=== PATIENT | female | born 1960 | race Asian ===

== ENCOUNTER 2018-01-07 09:51 | Emergency (ER) | payer MEDICAID, OTHER ==
[~2018-01-07] VITALS: Ht 162.6 cm; Wt 81.8 kg
[~2018-01-07 09:51] MED LIST: LEVO112T4 PO; QUET300T2 PO
[2018-01-07 10:42] LABS: BASOPHILS % (AUTO) 0.7 % (0.0-2.0); EOSINOPHILS % (AUTO) 0.3 % (1.0-6.0); HEMATOCRIT 39.8 % (36-46); HEMOGLOBIN 13.3 g/dL (12.0-16.0); LYMPHOCYTES # (AUTO) 2.7 K/uL (1.0-4.8); LYMPHOCYTES % (AUTO) 32.5 % (22.0-44.0); MEAN CORPUSCULAR HEMOGLOBIN 28.6 pg (26.0-34.0); MEAN CORPUSCULAR HGB CONC 33.4 G/dL (31.0-37.0); MEAN CORPUSCULAR VOLUME 86 fL (80-100); MONOCYTES # (AUTO) 0.6 K/uL (0.1-1.0); MONOCYTES % (AUTO) 6.7 % (2.0-9.0); NEUTROPHILS % (AUTO) 59.8 % (40.0-70.0); PLATELET COUNT (AUTO) 355 K/uL (150-450); RED BLOOD CELL COUNT(AUTO) 4.65 MIL/uL (4.00-5.20); RED CELL DISTRIBUTION WIDTH 13.6 % (11.5-14.5)
[2018-01-07 10:59] LABS: ANION GAP 10 mmol/L (8-16); CARBON DIOXIDE 28 mmol/L (22-29); CHLORIDE 103 mmol/L (98-107); CREATININE 0.75 mg/dL (0.60-1.30); GLOMERULAR FILTR. RATE CALC > 60 mL/min (>60); GLUCOSE,RANDOM 121 mg/dL (70-110); POTASSIUM 3.4 mmol/L (3.5-5.1); SODIUM SERUM 141 mmol/L (136-145); UREA NITROGEN, BLOOD 8 mg/dL (7-18)
[2018-01-07 11:11] LABS: ALANINE AMINOTRANSFERASE 54 U/L (12-78); ALBUMIN 3.9 g/dL (3.4-5.0); ALKALINE PHOSPHATASE 87 U/L (46-116); ASPARTATE AMINOTRANSFERASE 27 U/L (15-37); BILIRUBIN,TOTAL 0.5 mg/dL (0.1-1.0); TOTAL PROTEIN, SERUM 8.2 g/dL (6.4-8.2)
[2018-01-07 11:45] LABS: AMPHET/METH SCREEN,URINE NEGATIVE (NEGATIVE); BARBITURATE SCREEN, URINE NEGATIVE (NEGATIVE); BENZODIAZEPINES SCREEN,URINE NEGATIVE (NEGATIVE); CANNABINOID SCREEN,URINE NEGATIVE (NEGATIVE); COCAINE SCREEN,URINE NEGATIVE (NEGATIVE); METHADONE SCREEN, URINE NEGATIVE (NEGATIVE); OPIATE SCREEN,URINE NEGATIVE (NEGATIVE)
[2018-01-07 11:46] LABS: PHENCYCLIDINE SCREEN,URINE NEGATIVE (NEGATIVE)
[2018-01-07 17:16] VITALS: BP 136/81
== END 2018-01-07 18:03 ==
LOC: EEVIPCON 09:51 → EMS 09:52
DX: F31.9 Bipolar disorder, unspecified (principal); E03.9 Hypothyroidism, unspecified
CPT/HCPCS: 36415; 80053; 80307; 85025; 99285; G0480

== ENCOUNTER 2018-01-23 11:32 | Emergency (ER) | payer OTHER ==
[~2018-01-23] VITALS: Ht 162.6 cm; Wt 81.8 kg
[2018-01-23] MEDS ORDERED: BECL10.62 IH (11:47)
[2018-01-23] MEDS ORDERED: ALBU8HFA PO (11:47)
[2018-01-23] MEDS ORDERED: IPRA4AER IH (11:47)
[2018-01-23] MEDS ORDERED: RANI150T7 PO (11:47)
[2018-01-23] MEDS ORDERED: ASPI81TA39 PO (11:47)
[2018-01-23] MEDS ORDERED: LEVE250T55 PO (11:47)
[2018-01-23 13:07] VITALS: BP 139/91
== END 2018-01-23 13:57 | disposition home or self-care (01) ==
LOC: EMS 11:34
DX: S80.212A Abrasion, left knee, initial encounter (principal); F32.9 Major depressive disorder, single episode, unspecified; E03.9 Hypothyroidism, unspecified; Z79.82 Long term (current) use of aspirin; Z79.899 Other long term (current) drug therapy; W01.0XXA Fall on same level from slipping, tripping and stumbling without subsequent striking against object, initial encounter; Y93.01 Activity, walking, marching and hiking; Y92.830 Public park as the place of occurrence of the external cause; Y99.8 Other external cause status
CPT/HCPCS: 99283

== ENCOUNTER 2019-11-30 13:48 | Inpatient (IN) | payer MEDICAID, OTHER ==
[~2019-11-30] VITALS: Ht 157.5 cm; Wt 89.3 kg
[~2019-11-30 13:48] MED LIST changes: +BECL10.62 IH; +LEVE250T55 PO; -LEVO112T4 PO; +RANI150T7 PO; +SERT25TA PO
[2019-11-30 15:06] LABS: BASOPHILS % (AUTO) 0.9 % (0.0-2.0); EOSINOPHILS % (AUTO) 0.1 % (1.0-6.0); HEMATOCRIT 39.3 % (36-46); LYMPHOCYTES # (AUTO) 3.3 K/uL (1.0-4.8); LYMPHOCYTES % (AUTO) 36.8 % (22.0-44.0); MEAN CORPUSCULAR HEMOGLOBIN 29.9 pg (26.0-34.0); MEAN CORPUSCULAR HGB CONC 33.1 G/dL (31.0-37.0); MEAN CORPUSCULAR VOLUME 90 fL (80-100); MONOCYTES # (AUTO) 0.6 K/uL (0.1-1.0); MONOCYTES % (AUTO) 6.8 % (2.0-9.0); NEUTROPHILS # (AUTO) 4.9 K/uL (1.8-7.7); NEUTROPHILS % (AUTO) 55.4 % (40.0-70.0); PLATELET COUNT (AUTO) 326 K/uL (150-450); RED BLOOD CELL COUNT(AUTO) 4.35 MIL/uL (4.00-5.20); RED CELL DISTRIBUTION WIDTH 13.5 % (11.5-14.5)
[2019-11-30 15:21] LABS: ANION GAP 10 mmol/L (8-16); CALCIUM, TOTAL 9.2 mg/dL (8.8-10.5); CARBON DIOXIDE 26 mmol/L (22-29); CHLORIDE 102 mmol/L (98-107); CREATININE 0.82 mg/dL (0.60-1.30); GLOMERULAR FILTR. RATE CALC > 60 mL/min (>60); GLUCOSE,RANDOM 122 mg/dL (70-110); POTASSIUM 3.3 mmol/L (3.5-5.1); SODIUM SERUM 138 mmol/L (136-145); UREA NITROGEN, BLOOD 8 mg/dL (7-18)
[2019-11-30 15:33] LABS: ALANINE AMINOTRANSFERASE 80 U/L (12-78); ALBUMIN 4.1 g/dL (3.4-5.0); ALKALINE PHOSPHATASE 90 U/L (46-116); ASPARTATE AMINOTRANSFERASE 34 U/L (15-37); BILIRUBIN,TOTAL 0.5 mg/dL (0.1-1.0); HCG,QUANTITATIVE 1 mIU/mL (0-6); TOTAL PROTEIN, SERUM 8.6 g/dL (6.4-8.2)
[2019-11-30] MEDS ORDERED: QUEtiapine FUMARATE 100 MG TABLET PO ONE (16:00)
[2019-11-30] MEDS ORDERED: POTASSIUM CHLORIDE 20 MEQ ER TABLET PO ONE (16:00)
[2019-11-30] MEDS ORDERED: LevETIRAcetam 500 MG TABLET PO ONE (16:00)
[2019-11-30 16:05] LABS: FREE T4 (FREE THYROXINE) 1.32 ng/dL (0.76-1.46); THYROID STIMULATING HORMONE 0.75 uIU/mL (0.36-3.74)
[2019-11-30] MEDS ORDERED: LORazepam 2 MG TABLET PO PRN (16:30)
[2019-11-30] MEDS ORDERED: ZOLPIDEM TARTRATE 10 MG TABLET PO PRN (16:30)
[2019-11-30] MEDS ORDERED: HALOPERIDOL 5 MG TABLET PO PRN (16:30)
[2019-11-30 19:51] LABS: APPEARANCE,URINE CLOUDY (CLEAR); BILIRUBIN,URINE NEGATIVE (NEGATIVE); GLUCOSE, URINE (UA) NEGATIVE (NEGATIVE); KETONES,URINE 15 mg/dL (NEGATIVE); LEUKOCYTE ESTERASE ,URINE SMALL (NEGATIVE); NITRATE,URINE POSITIVE (NEGATIVE); OCCULT BLOOD,URINE SMALL (NEGATIVE); PH,URINE 5.5 (5.0-8.0); PROTEIN,URINE NEGATIVE (NEGATIVE)
[2019-11-30 20:09] LABS: BACTERIA,URINE Many /HPF (None Seen); SQUAMOUS EPITHELIAL CELL,UR Few /LPF (None Seen)
[2019-11-30 20:16] LABS: AMPHET/METH SCREEN,URINE NEGATIVE (NEGATIVE); BARBITURATE SCREEN, URINE NEGATIVE (NEGATIVE); BENZODIAZEPINES SCREEN,URINE NEGATIVE (NEGATIVE); CANNABINOID SCREEN,URINE NEGATIVE (NEGATIVE); COCAINE SCREEN,URINE NEGATIVE (NEGATIVE); METHADONE SCREEN, URINE NEGATIVE (NEGATIVE); OPIATE SCREEN,URINE NEGATIVE (NEGATIVE); PHENCYCLIDINE SCREEN,URINE NEGATIVE (NEGATIVE)
[2019-11-30] MEDS ORDERED: CefTRIAXone 1 GM/DEXTROSE 50 ML IV ONE (20:30)
[2019-11-30] MEDS ORDERED: 0.9% SODIUM CHLORIDE 10 ML SYRINGE IVP PRN (21:30)
[2019-11-30] MEDS ORDERED: ACETAMINOPHEN 325 MG TABLET PO PRN ×2 (21:30→23:30)
[2019-11-30] MEDS ORDERED: BISACODYL 10 MG RECTAL RECTAL SUPPOSITORY PR PRN (23:30)
[2019-11-30] MEDS ORDERED: ZOLPIDEM TARTRATE 5 MG TABLET PO PRN (23:30)
[2019-11-30] MEDS ORDERED: IPRATROPIUM BROMIDE 0.5 MG/2.5 ML NEB SOLUTION NEB PRN (23:30)
[2019-11-30] MEDS ORDERED: MAGNESIUM HYDROXIDE SUSPENSION 30 ML UDCUP PO PRN (23:30)
[2019-11-30] MEDS ORDERED: ALBUTEROL SULFATE 2.5 MG/0.5 ML NEB SOLUTION NEB PRN (23:30)
[2019-12-01 00:05] LABS: THYROID STIMULATING HORMONE 1.44 uIU/mL (0.36-3.74)
[2019-12-01 01:58] LABS: GLUCOSE,POINT OF CARE 110 MG/DL (70-110)
[2019-12-01 03:34] LABS: FREE T4 (FREE THYROXINE) 1.17 ng/dL (0.76-1.46)
[2019-12-01] MEDS: DOCUSATE SODIUM 100 MG CAPSULE PO SCH ×2 (08:14→21:00)
[2019-12-01] MEDS: HEPARIN SODIUM,PORCINE 5,000 UNITS/ML VIAL SQ SCH ×4 (08:15→23:33)
[2019-12-01] MEDS ORDERED: LevETIRAcetam 750 MG in DEXTROSE 5%-WATER 100 ML IV SCH ×2 (09:00→15:00)
[2019-12-01 11:51] VITALS: BP 136/71
[2019-12-01 16:10] VITALS: BP 137/79
[2019-12-01] MEDS: LevETIRAcetam 750 MG in DEXTROSE 5%-WATER 100 ML IV SCH (16:13)
[2019-12-01 20:07] VITALS: BP 122/60
[2019-12-01] MEDS ORDERED: CefTRIAXone 1 GM/DEXTROSE 50 ML IV SCH (21:00)
[2019-12-01 23:19] VITALS: BP 132/64
[2019-12-01] MEDS: CefTRIAXone 1 GM/DEXTROSE 50 ML IV SCH (23:31)
[2019-12-02] MEDS: LevETIRAcetam 750 MG in DEXTROSE 5%-WATER 100 ML IV SCH ×2 (02:43→14:54)
[2019-12-02 04:57] VITALS: BP 142/70
[2019-12-02 07:55] VITALS: BP 155/96
[2019-12-02] MEDS: HEPARIN SODIUM,PORCINE 5,000 UNITS/ML VIAL SQ SCH ×2 (08:00→14:53)
[2019-12-02] MEDS: DOCUSATE SODIUM 100 MG CAPSULE PO SCH ×4 (08:34→22:23)
[2019-12-02 11:51] VITALS: BP 99/44
[2019-12-02] MEDS ORDERED: POTASSIUM CHLORIDE 20 MEQ ER TABLET PO ONE (13:00)
[2019-12-02 20:12] VITALS: BP 126/76
[2019-12-03 00:01] VITALS: BP 106/41
[2019-12-03] MEDS: CefTRIAXone 1 GM/DEXTROSE 50 ML IV SCH ×2 (00:15→23:40)
[2019-12-03] MEDS: LevETIRAcetam 750 MG in DEXTROSE 5%-WATER 100 ML IV SCH ×2 (03:05→15:00)
[2019-12-03 05:03] VITALS: BP 125/62
[2019-12-03] MEDS: HEPARIN SODIUM,PORCINE 5,000 UNITS/ML VIAL SQ SCH ×4 (08:00→23:39)
[2019-12-03 08:15] VITALS: BP 101/61
[2019-12-03] MEDS: DOCUSATE SODIUM 100 MG CAPSULE PO SCH ×2 (09:00→21:03)
[2019-12-03 11:55] VITALS: BP 120/63
[2019-12-03 16:00] VITALS: BP 121/62
[2019-12-03 20:28] VITALS: BP 105/75
[2019-12-04] VITALS (7 sets, daily range): BP systolic 103–142; BP diastolic 55–88
[2019-12-04] MEDS: LevETIRAcetam 750 MG in DEXTROSE 5%-WATER 100 ML IV SCH ×2 (02:13→16:11)
[2019-12-04] MEDS: HEPARIN SODIUM,PORCINE 5,000 UNITS/ML VIAL SQ SCH ×2 (08:00→16:00)
[2019-12-04] MEDS: DOCUSATE SODIUM 100 MG CAPSULE PO SCH ×2 (08:08→20:55)
[2019-12-05] MEDS: HEPARIN SODIUM,PORCINE 5,000 UNITS/ML VIAL SQ SCH ×4 (00:54→23:48)
[2019-12-05] MEDS: CefTRIAXone 1 GM/DEXTROSE 50 ML IV SCH (00:54)
[2019-12-05] MEDS ORDERED: SODIUM CHLORIDE 0.9% 500 ML IV ONE (00:58)
[2019-12-05] MEDS: LevETIRAcetam 750 MG in DEXTROSE 5%-WATER 100 ML IV SCH (02:41)
[2019-12-05 04:33] VITALS: BP 120/72
[2019-12-05] MEDS: DOCUSATE SODIUM 100 MG CAPSULE PO SCH ×2 (07:28→21:01)
[2019-12-05 08:27] VITALS: BP 125/75
[2019-12-05 11:20] VITALS: BP 130/67
[2019-12-05 15:41] VITALS: BP 128/70
[2019-12-05 19:45] VITALS: BP 129/57
[2019-12-05] MEDS: LevETIRAcetam 250 MG TABLET PO SCH (21:01)
[2019-12-05 23:35] VITALS: BP 123/62
[2019-12-06 05:45] VITALS: BP 129/69
[2019-12-06 08:02] VITALS: BP 136/81
[2019-12-06] MEDS: DOCUSATE SODIUM 100 MG CAPSULE PO SCH (08:59)
[2019-12-06] MEDS: HEPARIN SODIUM,PORCINE 5,000 UNITS/ML VIAL SQ SCH ×2 (08:59→15:43)
[2019-12-06] MEDS: LevETIRAcetam 250 MG TABLET PO SCH (08:59)
[2019-12-06] MEDS ORDERED: LEVOFLOXACIN 500 MG TABLET PO SCH (09:00)
[2019-12-06 12:19] VITALS: BP 120/85
[2019-12-06] MEDS ORDERED: LEVE250T55 PO (15:06)
[2019-12-06 15:53] VITALS: BP 127/80
== END 2019-12-06 16:47 | DRG 756 ==
LOC: EMS 13:52 → 5S 12-01 08:25 → 4E 12-04 17:40
PROVIDERS: ADMIT Hospitalist; ATTEND Hospitalist
DX: F99 Mental disorder, not otherwise specified (principal); I63.81 Other cerebral infarction due to occlusion or stenosis of small artery; F32.9 Major depressive disorder, single episode, unspecified; H74.90 Unspecified disorder of middle ear and mastoid, unspecified ear; G93.0 Cerebral cysts; H61.21 Impacted cerumen, right ear; E03.9 Hypothyroidism, unspecified; N39.0 Urinary tract infection, site not specified; G40.909 Epilepsy, unspecified, not intractable, without status epilepticus
CPT/HCPCS: 70450; 82948; 84132; 84439; 84443; 87086; 92610; 93005; 93880; 99291; G0378; G0480; J0696; J0712; J1644; J7040; J7060

== ENCOUNTER 2019-12-06 16:30 | Inpatient (IN) | payer MEDICAID ==
[~2019-12-06] VITALS: Ht 162.6 cm; Wt 84.3 kg
[2019-12-06] MEDS: LevETIRAcetam 250 MG TABLET PO SCH (18:40)
[2019-12-06] MEDS ORDERED: LORazepam 2 MG TABLET PO PRN (19:00)
[2019-12-06] MEDS ORDERED: HALOPERIDOL 5 MG TABLET PO PRN (19:00)
[2019-12-06] MEDS ORDERED: ZOLPIDEM TARTRATE 10 MG TABLET PO PRN (19:00)
[2019-12-06] MEDS: QUEtiapine FUMARATE 200 MG TABLET PO SCH (20:13)
[2019-12-06 20:42] VITALS: BP 142/81
[2019-12-07] MEDS: LEVOTHYROXINE SODIUM 50 MCG TABLET PO SCH (06:22)
[2019-12-07 07:12] LABS: BASOPHILS % (AUTO) 1.4 % (0.0-2.0); HEMOGLOBIN 13.3 g/dL (12.0-16.0); LYMPHOCYTES # (AUTO) 3.8 K/uL (1.0-4.8); LYMPHOCYTES % (AUTO) 47.5 % (22.0-44.0); MEAN CORPUSCULAR HEMOGLOBIN 30.2 pg (26.0-34.0); MEAN CORPUSCULAR HGB CONC 33.2 G/dL (31.0-37.0); MEAN CORPUSCULAR VOLUME 91 fL (80-100); MONOCYTES # (AUTO) 0.6 K/uL (0.1-1.0); MONOCYTES % (AUTO) 7.1 % (2.0-9.0); NEUTROPHILS # (AUTO) 3.4 K/uL (1.8-7.7); PLATELET COUNT (AUTO) 292 K/uL (150-450); RED BLOOD CELL COUNT(AUTO) 4.39 MIL/uL (4.00-5.20); RED CELL DISTRIBUTION WIDTH 13.9 % (11.5-14.5)
[2019-12-07] MEDS ORDERED: PETROLATUM,WHITE 28 GM JELLY TP PRN (07:15)
[2019-12-07] MEDS ORDERED: CloNIDine HCL 0.1 MG TABLET PO PRN (07:15)
[2019-12-07] MEDS ORDERED: MAG HYDROX/AL HYDROX/SIMETH ES 30 ML SUSPENSION UDCUP PO PRN (07:15)
[2019-12-07] MEDS ORDERED: NICOTINE 14 MG/24 HOUR PATCH TD PRN (07:15)
[2019-12-07] MEDS ORDERED: DOCUSATE SODIUM 100 MG CAPSULE PO PRN (07:15)
[2019-12-07] MEDS ORDERED: MAGNESIUM HYDROXIDE SUSPENSION 30 ML UDCUP PO PRN (07:15)
[2019-12-07] MEDS ORDERED: ALBUTEROL SULFATE HFA 90 MCG/PUFF 8 GM INHALER IH PRN (07:15)
[2019-12-07] MEDS ORDERED: ACETAMINOPHEN 325 MG TABLET PO PRN (07:15)
[2019-12-07] MEDS ORDERED: IBUPROFEN 400 MG TABLET PO PRN (07:15)
[2019-12-07] MEDS ORDERED: ONDANSETRON HCL 4 MG TABLET PO PRN (07:15)
[2019-12-07] MEDS ORDERED: LOPERAMIDE HCL 2 MG CAPSULE PO PRN (07:15)
[2019-12-07] MEDS ORDERED: GuaiFENesin/D-METHORPHAN [SUGAR-FREE] 200-20MG/10 ML SYRUP UDCUP PO PRN (07:15)
[2019-12-07 07:39] LABS: ALANINE AMINOTRANSFERASE 55 U/L (12-78); ALBUMIN 3.6 g/dL (3.4-5.0); ALKALINE PHOSPHATASE 74 U/L (46-116); ANION GAP 7 mmol/L (8-16); ASPARTATE AMINOTRANSFERASE 31 U/L (15-37); BILIRUBIN,TOTAL 0.3 mg/dL (0.1-1.0); CALCIUM, TOTAL 9.2 mg/dL (8.8-10.5); CARBON DIOXIDE 29 mmol/L (22-29); CHLORIDE 109 mmol/L (98-107); CREATININE 0.82 mg/dL (0.60-1.30); GLOMERULAR FILTR. RATE CALC > 60 mL/min (>60); GLUCOSE,RANDOM 93 mg/dL (70-110); POTASSIUM 4.4 mmol/L (3.5-5.1); SODIUM SERUM 145 mmol/L (136-145); TOTAL PROTEIN, SERUM 7.5 g/dL (6.4-8.2); UREA NITROGEN, BLOOD 14 mg/dL (7-18)
[2019-12-07] MEDS: SERTRALINE HCL 50 MG TABLET PO SCH (09:07)
[2019-12-07] MEDS: LEVOFLOXACIN 500 MG TABLET PO SCH (09:07)
[2019-12-07] MEDS: BENAZEPRIL HCL 10 MG TABLET PO SCH (09:07)
[2019-12-07] MEDS: DOCUSATE SODIUM 100 MG CAPSULE PO SCH ×2 (09:07→16:31)
[2019-12-07] MEDS: LevETIRAcetam 250 MG TABLET PO SCH ×2 (09:07→16:26)
[2019-12-07 10:39] VITALS: BP 140/78
[2019-12-07 16:58] VITALS: BP 157/66
[2019-12-07] MEDS: QUEtiapine FUMARATE 200 MG TABLET PO SCH (20:27)
[2019-12-08 04:26] VITALS: BP 140/77
[2019-12-08] MEDS: LEVOTHYROXINE SODIUM 50 MCG TABLET PO SCH (06:48)
[2019-12-08] MEDS: LevETIRAcetam 250 MG TABLET PO SCH ×2 (08:58→16:55)
[2019-12-08] MEDS: SERTRALINE HCL 50 MG TABLET PO SCH (08:58)
[2019-12-08] MEDS: LEVOFLOXACIN 500 MG TABLET PO SCH (08:58)
[2019-12-08] MEDS: BENAZEPRIL HCL 10 MG TABLET PO SCH (08:58)
[2019-12-08] MEDS: DOCUSATE SODIUM 100 MG CAPSULE PO SCH ×2 (09:00→16:58)
[2019-12-08 09:43] VITALS: BP 157/86
[2019-12-08 17:32] VITALS: BP 148/80
[2019-12-08] MEDS: QUEtiapine FUMARATE 200 MG TABLET PO SCH (20:32)
[2019-12-09] MEDS: LEVOTHYROXINE SODIUM 50 MCG TABLET PO SCH (06:41)
[2019-12-09 08:30] VITALS: BP 130/88
[2019-12-09] MEDS: SERTRALINE HCL 50 MG TABLET PO SCH (08:41)
[2019-12-09] MEDS: LevETIRAcetam 250 MG TABLET PO SCH ×2 (08:41→17:04)
[2019-12-09] MEDS: LEVOFLOXACIN 500 MG TABLET PO SCH (08:41)
[2019-12-09] MEDS: DOCUSATE SODIUM 100 MG CAPSULE PO SCH ×2 (08:41→17:04)
[2019-12-09] MEDS: BENAZEPRIL HCL 10 MG TABLET PO SCH (08:41)
[2019-12-09 16:48] VITALS: BP 118/73
[2019-12-09] MEDS: QUEtiapine FUMARATE 200 MG TABLET PO SCH (21:13)
[2019-12-10] MEDS: LEVOTHYROXINE SODIUM 50 MCG TABLET PO SCH (06:47)
[2019-12-10] MEDS: BENAZEPRIL HCL 10 MG TABLET PO SCH (08:55)
[2019-12-10] MEDS: LEVOFLOXACIN 500 MG TABLET PO SCH (08:55)
[2019-12-10] MEDS: LevETIRAcetam 250 MG TABLET PO SCH ×2 (08:55→16:35)
[2019-12-10] MEDS: SERTRALINE HCL 50 MG TABLET PO SCH (08:56)
[2019-12-10] MEDS: DOCUSATE SODIUM 100 MG CAPSULE PO SCH ×2 (08:59→17:00)
[2019-12-10 09:27] VITALS: BP 119/87
[2019-12-10 16:50] VITALS: BP 154/84
[2019-12-10] MEDS: QUEtiapine FUMARATE 200 MG TABLET PO SCH (20:19)
[2019-12-11] MEDS: LEVOTHYROXINE SODIUM 50 MCG TABLET PO SCH (06:47)
[2019-12-11] MEDS: BENAZEPRIL HCL 10 MG TABLET PO SCH (09:00)
[2019-12-11] MEDS: SERTRALINE HCL 50 MG TABLET PO SCH (09:00)
[2019-12-11] MEDS: LevETIRAcetam 250 MG TABLET PO SCH ×2 (09:00→16:03)
[2019-12-11] MEDS: LEVOFLOXACIN 500 MG TABLET PO SCH (09:00)
[2019-12-11] MEDS: DOCUSATE SODIUM 100 MG CAPSULE PO SCH ×2 (09:00→16:03)
[2019-12-11 09:57] VITALS: BP 115/67
[2019-12-11 16:36] VITALS: BP 126/78
[2019-12-11] MEDS: QUEtiapine FUMARATE 200 MG TABLET PO SCH (20:31)
[2019-12-12] MEDS: LEVOTHYROXINE SODIUM 50 MCG TABLET PO SCH (06:38)
[2019-12-12] MEDS: DOCUSATE SODIUM 100 MG CAPSULE PO SCH ×2 (08:52→16:37)
[2019-12-12] MEDS: SERTRALINE HCL 50 MG TABLET PO SCH (08:52)
[2019-12-12] MEDS: BENAZEPRIL HCL 10 MG TABLET PO SCH (08:53)
[2019-12-12] MEDS: LevETIRAcetam 250 MG TABLET PO SCH ×2 (08:53→16:37)
[2019-12-12 09:57] VITALS: BP 135/108
[2019-12-12 17:00] VITALS: BP 132/72
[2019-12-12] MEDS: QUEtiapine FUMARATE 200 MG TABLET PO SCH (20:48)
[2019-12-13] MEDS: LEVOTHYROXINE SODIUM 50 MCG TABLET PO SCH (06:30)
[2019-12-13] MEDS: BENAZEPRIL HCL 10 MG TABLET PO SCH (08:18)
[2019-12-13] MEDS: LevETIRAcetam 250 MG TABLET PO SCH ×2 (08:18→16:22)
[2019-12-13] MEDS: DOCUSATE SODIUM 100 MG CAPSULE PO SCH ×3 (08:18→16:23)
[2019-12-13] MEDS: SERTRALINE HCL 50 MG TABLET PO SCH (08:18)
[2019-12-13 08:39] VITALS: BP 139/68
[2019-12-13 17:51] VITALS: BP 137/79
[2019-12-13] MEDS: QUEtiapine FUMARATE 200 MG TABLET PO SCH (20:10)
[2019-12-14] MEDS: LEVOTHYROXINE SODIUM 50 MCG TABLET PO SCH (06:35)
[2019-12-14 08:30] VITALS: BP 122/75
[2019-12-14] MEDS: DOCUSATE SODIUM 100 MG CAPSULE PO SCH ×2 (09:00→16:02)
[2019-12-14] MEDS: LevETIRAcetam 250 MG TABLET PO SCH ×2 (09:09→16:02)
[2019-12-14] MEDS: BENAZEPRIL HCL 10 MG TABLET PO SCH (09:10)
[2019-12-14] MEDS: SERTRALINE HCL 50 MG TABLET PO SCH (09:10)
[2019-12-14 16:47] VITALS: BP 113/68
[2019-12-14] MEDS: QUEtiapine FUMARATE 200 MG TABLET PO SCH (20:01)
[2019-12-15] MEDS: LEVOTHYROXINE SODIUM 50 MCG TABLET PO SCH (06:39)
[2019-12-15] MEDS: SERTRALINE HCL 50 MG TABLET PO SCH ×2 (08:30→09:45)
[2019-12-15] MEDS: DOCUSATE SODIUM 100 MG CAPSULE PO SCH ×3 (08:30→16:00)
[2019-12-15] MEDS: LevETIRAcetam 250 MG TABLET PO SCH ×3 (08:30→16:00)
[2019-12-15] MEDS: BENAZEPRIL HCL 10 MG TABLET PO SCH ×2 (08:30→09:45)
[2019-12-15 08:45] VITALS: BP 117/63
[2019-12-15 20:04] VITALS: BP 123/71
[2019-12-15] MEDS: QUEtiapine FUMARATE 200 MG TABLET PO SCH (20:23)
[2019-12-16] MEDS: LEVOTHYROXINE SODIUM 50 MCG TABLET PO SCH (06:42)
[2019-12-16 08:47] VITALS: BP 114/59
[2019-12-16 08:58] VITALS: BP 126/73
[2019-12-16] MEDS: DOCUSATE SODIUM 100 MG CAPSULE PO SCH ×2 (09:00→16:19)
[2019-12-16] MEDS: LevETIRAcetam 250 MG TABLET PO SCH ×2 (09:18→16:19)
[2019-12-16] MEDS: BENAZEPRIL HCL 10 MG TABLET PO SCH (09:19)
[2019-12-16] MEDS: SERTRALINE HCL 50 MG TABLET PO SCH (09:19)
[2019-12-16 17:24] VITALS: BP 128/77
[2019-12-16] MEDS: QUEtiapine FUMARATE 200 MG TABLET PO SCH (21:15)
[2019-12-17 03:02] VITALS: BP 120/67
[2019-12-17] MEDS: LEVOTHYROXINE SODIUM 50 MCG TABLET PO SCH (06:43)
[2019-12-17] MEDS: BENAZEPRIL HCL 10 MG TABLET PO SCH (08:34)
[2019-12-17] MEDS: LevETIRAcetam 250 MG TABLET PO SCH ×2 (08:34→16:10)
[2019-12-17] MEDS: SERTRALINE HCL 50 MG TABLET PO SCH (08:34)
[2019-12-17] MEDS: DOCUSATE SODIUM 100 MG CAPSULE PO SCH ×2 (08:38→16:20)
[2019-12-17 09:08] VITALS: BP 167/100
[2019-12-17 16:00] VITALS: BP 150/62
[2019-12-17] MEDS ORDERED: DiphenhydrAMINE HCL 50 MG/ML VIAL IM ONE (18:45)
[2019-12-17] MEDS ORDERED: HALOPERIDOL LACTATE 5 MG/ML VIAL IM ONE (18:45)
[2019-12-17] MEDS ORDERED: LORazepam 2 MG/ML VIAL IM ONE (18:45)
[2019-12-17] MEDS: QUEtiapine FUMARATE 200 MG TABLET PO SCH (20:28)
[2019-12-18] MEDS: LEVOTHYROXINE SODIUM 50 MCG TABLET PO SCH (06:13)
[2019-12-18] MEDS: DOCUSATE SODIUM 100 MG CAPSULE PO SCH ×2 (09:00→16:07)
[2019-12-18 09:30] VITALS: BP 113/69
[2019-12-18] MEDS: LevETIRAcetam 250 MG TABLET PO SCH ×2 (09:54→16:07)
[2019-12-18] MEDS: BENAZEPRIL HCL 10 MG TABLET PO SCH (09:55)
[2019-12-18] MEDS: SERTRALINE HCL 50 MG TABLET PO SCH (09:55)
[2019-12-18 16:51] VITALS: BP 139/76
[2019-12-18] MEDS: QUEtiapine FUMARATE 200 MG TABLET PO SCH (20:16)
[2019-12-19] MEDS: LEVOTHYROXINE SODIUM 50 MCG TABLET PO SCH (06:25)
[2019-12-19] MEDS: DOCUSATE SODIUM 100 MG CAPSULE PO SCH ×2 (08:46→17:00)
[2019-12-19] MEDS: SERTRALINE HCL 50 MG TABLET PO SCH (08:46)
[2019-12-19] MEDS: BENAZEPRIL HCL 10 MG TABLET PO SCH (08:46)
[2019-12-19] MEDS: LevETIRAcetam 250 MG TABLET PO SCH ×2 (08:46→16:17)
[2019-12-19 09:20] VITALS: BP 132/80
[2019-12-19 17:56] VITALS: BP 141/76
[2019-12-19] MEDS: QUEtiapine FUMARATE 200 MG TABLET PO SCH (20:07)
[2019-12-20] MEDS: LEVOTHYROXINE SODIUM 50 MCG TABLET PO SCH (06:39)
[2019-12-20 08:00] VITALS: BP 126/90
[2019-12-20] MEDS: SERTRALINE HCL 50 MG TABLET PO SCH (08:50)
[2019-12-20] MEDS: LevETIRAcetam 250 MG TABLET PO SCH ×2 (08:51→16:01)
[2019-12-20] MEDS: BENAZEPRIL HCL 10 MG TABLET PO SCH (08:51)
[2019-12-20] MEDS: DOCUSATE SODIUM 100 MG CAPSULE PO SCH ×2 (08:53→16:51)
[2019-12-20 19:36] VITALS: BP 125/70
[2019-12-20] MEDS: QUEtiapine FUMARATE 200 MG TABLET PO SCH (20:24)
[2019-12-21] MEDS: LEVOTHYROXINE SODIUM 50 MCG TABLET PO SCH (06:41)
[2019-12-21 09:17] VITALS: BP 131/73
[2019-12-21] MEDS: BENAZEPRIL HCL 10 MG TABLET PO SCH (10:10)
[2019-12-21] MEDS: SERTRALINE HCL 50 MG TABLET PO SCH (10:10)
[2019-12-21] MEDS: LevETIRAcetam 250 MG TABLET PO SCH ×2 (10:10→16:17)
[2019-12-21] MEDS: DOCUSATE SODIUM 100 MG CAPSULE PO SCH ×2 (10:10→16:17)
[2019-12-21 16:58] VITALS: BP 131/85
[2019-12-21] MEDS: QUEtiapine FUMARATE 200 MG TABLET PO SCH (20:45)
[2019-12-22 02:25] VITALS: BP 151/89
[2019-12-22] MEDS: LEVOTHYROXINE SODIUM 50 MCG TABLET PO SCH (06:49)
[2019-12-22] MEDS: DOCUSATE SODIUM 100 MG CAPSULE PO SCH ×2 (09:00→16:09)
[2019-12-22] MEDS: BENAZEPRIL HCL 10 MG TABLET PO SCH (09:57)
[2019-12-22] MEDS: SERTRALINE HCL 50 MG TABLET PO SCH (09:58)
[2019-12-22] MEDS: LevETIRAcetam 250 MG TABLET PO SCH ×2 (09:58→16:09)
[2019-12-22 11:20] VITALS: BP 132/89
[2019-12-22 19:15] VITALS: BP 126/78
[2019-12-22] MEDS: QUEtiapine FUMARATE 200 MG TABLET PO SCH (20:45)
[2019-12-23] MEDS: LEVOTHYROXINE SODIUM 50 MCG TABLET PO SCH (06:23)
[2019-12-23 08:50] VITALS: BP 135/83
[2019-12-23] MEDS: SERTRALINE HCL 50 MG TABLET PO SCH (09:00)
[2019-12-23] MEDS: BENAZEPRIL HCL 10 MG TABLET PO SCH (09:00)
[2019-12-23] MEDS: DOCUSATE SODIUM 100 MG CAPSULE PO SCH ×2 (09:00→17:00)
[2019-12-23] MEDS: LevETIRAcetam 250 MG TABLET PO SCH ×2 (09:18→16:06)
[2019-12-23 16:22] VITALS: BP 116/77
[2019-12-23] MEDS: QUEtiapine FUMARATE 200 MG TABLET PO SCH (20:00)
[2019-12-24] MEDS: LEVOTHYROXINE SODIUM 50 MCG TABLET PO SCH (06:43)
[2019-12-24] MEDS: LevETIRAcetam 250 MG TABLET PO SCH ×2 (08:43→16:20)
[2019-12-24] MEDS: SERTRALINE HCL 50 MG TABLET PO SCH (08:43)
[2019-12-24] MEDS: BENAZEPRIL HCL 10 MG TABLET PO SCH (08:44)
[2019-12-24] MEDS: DOCUSATE SODIUM 100 MG CAPSULE PO SCH ×2 (08:47→16:26)
[2019-12-24 08:57] VITALS: BP 149/98
[2019-12-24 17:00] VITALS: BP 121/80
[2019-12-24] MEDS: QUEtiapine FUMARATE 200 MG TABLET PO SCH (20:24)
[2019-12-25] MEDS: LEVOTHYROXINE SODIUM 50 MCG TABLET PO SCH (06:20)
[2019-12-25] MEDS: DOCUSATE SODIUM 100 MG CAPSULE PO SCH ×2 (09:00→17:00)
[2019-12-25] MEDS: LevETIRAcetam 250 MG TABLET PO SCH ×2 (09:03→16:00)
[2019-12-25] MEDS: SERTRALINE HCL 50 MG TABLET PO SCH (09:03)
[2019-12-25] MEDS: BENAZEPRIL HCL 10 MG TABLET PO SCH (09:03)
[2019-12-25 09:52] VITALS: BP 136/81
[2019-12-25 16:00] VITALS: BP 146/90
[2019-12-25] MEDS: QUEtiapine FUMARATE 200 MG TABLET PO SCH (20:04)
[2019-12-26] MEDS: LEVOTHYROXINE SODIUM 50 MCG TABLET PO SCH (06:45)
[2019-12-26] MEDS: DOCUSATE SODIUM 100 MG CAPSULE PO SCH ×2 (09:00→16:23)
[2019-12-26] MEDS: SERTRALINE HCL 50 MG TABLET PO SCH (09:03)
[2019-12-26] MEDS: LevETIRAcetam 250 MG TABLET PO SCH ×2 (09:03→16:21)
[2019-12-26] MEDS: BENAZEPRIL HCL 10 MG TABLET PO SCH (09:03)
[2019-12-26 09:37] VITALS: BP 125/76
[2019-12-26 16:51] VITALS: BP 148/58
[2019-12-26] MEDS: QUEtiapine FUMARATE 200 MG TABLET PO SCH (20:02)
[2019-12-27] MEDS: LEVOTHYROXINE SODIUM 50 MCG TABLET PO SCH (06:42)
[2019-12-27 08:53] VITALS: BP 115/76
[2019-12-27] MEDS: BENAZEPRIL HCL 10 MG TABLET PO SCH (10:17)
[2019-12-27] MEDS: LevETIRAcetam 250 MG TABLET PO SCH ×2 (10:17→16:12)
[2019-12-27] MEDS: SERTRALINE HCL 50 MG TABLET PO SCH (10:17)
[2019-12-27] MEDS: DOCUSATE SODIUM 100 MG CAPSULE PO SCH ×2 (10:17→16:50)
[2019-12-27 17:03] VITALS: BP 132/80
[2019-12-27] MEDS: QUEtiapine FUMARATE 200 MG TABLET PO SCH (20:11)
[2019-12-28] MEDS: LEVOTHYROXINE SODIUM 50 MCG TABLET PO SCH (06:49)
[2019-12-28 08:44] VITALS: BP 137/77
[2019-12-28] MEDS: LevETIRAcetam 250 MG TABLET PO SCH ×2 (09:55→16:06)
[2019-12-28] MEDS: SERTRALINE HCL 50 MG TABLET PO SCH (09:55)
[2019-12-28] MEDS: BENAZEPRIL HCL 10 MG TABLET PO SCH (09:55)
[2019-12-28] MEDS: DOCUSATE SODIUM 100 MG CAPSULE PO SCH ×2 (09:55→16:07)
[2019-12-28 17:41] VITALS: BP 120/77
[2019-12-28] MEDS: QUEtiapine FUMARATE 200 MG TABLET PO SCH (20:32)
[2019-12-29] MEDS: LEVOTHYROXINE SODIUM 50 MCG TABLET PO SCH (06:45)
[2019-12-29 08:26] VITALS: BP 119/71
[2019-12-29] MEDS: SERTRALINE HCL 50 MG TABLET PO SCH (08:33)
[2019-12-29] MEDS: BENAZEPRIL HCL 10 MG TABLET PO SCH (08:33)
[2019-12-29] MEDS: LevETIRAcetam 250 MG TABLET PO SCH ×2 (08:33→16:23)
[2019-12-29] MEDS: DOCUSATE SODIUM 100 MG CAPSULE PO SCH ×2 (08:35→16:24)
[2019-12-29 16:58] VITALS: BP 134/79
[2019-12-29] MEDS: QUEtiapine FUMARATE 200 MG TABLET PO SCH (20:25)
[2019-12-30] MEDS: LEVOTHYROXINE SODIUM 50 MCG TABLET PO SCH (06:53)
[2019-12-30 08:30] VITALS: BP 164/91
[2019-12-30] MEDS: BENAZEPRIL HCL 10 MG TABLET PO SCH ×2 (09:00→10:39)
[2019-12-30] MEDS: LevETIRAcetam 250 MG TABLET PO SCH ×2 (09:00→10:39)
[2019-12-30] MEDS: SERTRALINE HCL 50 MG TABLET PO SCH ×2 (09:00→10:42)
[2019-12-30] MEDS: DOCUSATE SODIUM 100 MG CAPSULE PO SCH ×2 (09:00→10:42)
[2019-12-30] MEDS ORDERED: QUET200T29 PO (14:46)
[2019-12-30] MEDS ORDERED: SERT50TA12 PO (14:46)
[2019-12-30] MEDS ORDERED: LEVO50 PO (15:36)
[2019-12-30] MEDS ORDERED: LEVE250T55 PO (15:38)
[2019-12-30] MEDS ORDERED: DOCU-275 PO (15:38)
[2019-12-30] MEDS ORDERED: BENA10TA76 PO (15:39)
== END 2019-12-30 17:15 | disposition home or self-care (01) | DRG 885 ==
LOC: 3EI 16:30
PROVIDERS: ADMIT Psychiatry & Neurology Child & Adolescent Psychiatry; ATTEND Psychiatry & Neurology Child & Adolescent Psychiatry
DX: F25.0 Schizoaffective disorder, bipolar type (principal); F41.9 Anxiety disorder, unspecified; G40.909 Epilepsy, unspecified, not intractable, without status epilepticus; G47.33 Obstructive sleep apnea (adult) (pediatric); I10 Essential (primary) hypertension; Z59.0 Homelessness; Z79.899 Other long term (current) drug therapy
CPT/HCPCS: 87081; 93005; 94660; G0482; J1200; J1630; J2060; J3535

== ENCOUNTER 2022-01-13 11:39 | Emergency (ER) | payer MEDICARE, MEDICAID ==
[~2022-01-13] VITALS: Ht 162.6 cm; Wt 90.9 kg
[~2022-01-13 11:39] MED LIST changes: -BECL10.62 IH; +BENA10TA76 PO; +DOCU-385 PO; +LEVE250T4 PO; -LEVE250T55 PO; +LEVO50 PO; +QUET200T30 PO; -QUET300T2 PO; -RANI150T7 PO; +SERT-439 PO; -SERT25TA PO
[2022-01-13 11:45] VITALS: BP 130/76
[2022-01-13 12:12] LABS: BASOPHILS % (AUTO) 1.1 % (0.0-2.0); EOSINOPHILS % (AUTO) 1.4 % (1.0-6.0); HEMATOCRIT 38.6 % (36-46); LYMPHOCYTES # (AUTO) 3.3 K/uL (1.0-4.8); LYMPHOCYTES % (AUTO) 41.3 % (22.0-44.0); MEAN CORPUSCULAR HEMOGLOBIN 29.5 pg (26.0-34.0); MEAN CORPUSCULAR HGB CONC 33.7 G/dL (31.0-37.0); MEAN CORPUSCULAR VOLUME 88 fL (80-100); MONOCYTES # (AUTO) 0.4 K/uL (0.1-1.0); MONOCYTES % (AUTO) 5.6 % (2.0-9.0); NEUTROPHILS % (AUTO) 50.6 % (40.0-70.0); PLATELET COUNT (AUTO) 303 K/uL (150-450); RED BLOOD CELL COUNT(AUTO) 4.42 MIL/uL (4.00-5.20); RED CELL DISTRIBUTION WIDTH 13.4 % (11.5-14.5)
[2022-01-13 12:30] LABS: ANION GAP 11 mmol/L (8-16); CARBON DIOXIDE 26 mmol/L (22-29); CHLORIDE 105 mmol/L (98-107); CREATININE 0.71 mg/dL (0.60-1.30); GLOMERULAR FILTR. RATE CALC > 60 mL/min (>60); GLUCOSE,RANDOM 124 mg/dL (70-110); POTASSIUM 3.9 mmol/L (3.5-5.1); SODIUM SERUM 142 mmol/L (136-145); UREA NITROGEN, BLOOD 12 mg/dL (7-18)
[2022-01-13 12:36] LABS: ALANINE AMINOTRANSFERASE 84 U/L (12-78); ALBUMIN 3.8 g/dL (3.4-5.0); ALKALINE PHOSPHATASE 83 U/L (46-116); ASPARTATE AMINOTRANSFERASE 43 U/L (15-37); BILIRUBIN,TOTAL 0.3 mg/dL (0.1-1.0); TOTAL PROTEIN, SERUM 7.9 g/dL (6.4-8.2)
== END 2022-01-13 15:23 | disposition home or self-care (01) ==
LOC: EMS 11:39
DX: F31.9 Bipolar disorder, unspecified (principal); G47.00 Insomnia, unspecified
CPT/HCPCS: 36415; 80053; 85025; 99283; G0480

== ENCOUNTER 2024-08-05 19:43 | Emergency (ER) | payer MEDICARE, MEDICAID ==
[~2024-08-05] VITALS: Ht 162.6 cm; Wt 90.5 kg
[~2024-08-05 19:43] MED LIST changes: -LEVE250T4 PO; +LEVE250T81 PO
[2024-08-05 19:53] VITALS: TEMP 98.7
[2024-08-05 20:54] LABS: COVID AG,FIA SOURCE NASAL SWAB
[2024-08-05 21:06] LABS: BASOPHILS % (AUTO) 1.1 % (0.0-2.0); EOSINOPHILS % (AUTO) 1.8 % (1.0-6.0); HEMATOCRIT 36.7 % (36-46); HEMOGLOBIN 12.1 g/dL (12.0-16.0); LYMPHOCYTES # (AUTO) 2.9 K/uL (1.0-4.8); LYMPHOCYTES % (AUTO) 38.5 % (22.0-44.0); MEAN CORPUSCULAR HEMOGLOBIN 29.4 pg (26.0-34.0); MEAN CORPUSCULAR VOLUME 89 fL (80-100); MONOCYTES # (AUTO) 0.7 K/uL (0.1-1.0); MONOCYTES % (AUTO) 9.5 % (2.0-9.0); NEUTROPHILS # (AUTO) 3.7 K/uL (1.8-7.7); NEUTROPHILS % (AUTO) 49.1 % (40.0-70.0); PLATELET COUNT (AUTO) 336 K/uL (150-450); RED BLOOD CELL COUNT(AUTO) 4.12 MIL/uL (4.00-5.20); RED CELL DISTRIBUTION WIDTH 13.6 % (11.5-14.5); WHITE BLOOD COUNT (AUTO) 7.4 K/uL (4.5-11.0)
[2024-08-05 21:08] LABS: ANION GAP 7 mmol/L (8-16); CALCIUM, TOTAL 8.6 mg/dL (8.8-10.5); CARBON DIOXIDE 28 mmol/L (22-29); CHLORIDE 105 mmol/L (98-107); CREATININE 0.59 mg/dL (0.60-1.30); GLOMERULAR FILTR. RATE CALC > 60 mL/min (>60); GLUCOSE,RANDOM 93 mg/dL (70-110); POTASSIUM 3.7 mmol/L (3.5-5.1); SODIUM SERUM 140 mmol/L (136-145); UREA NITROGEN, BLOOD 10 mg/dL (7-18)
[2024-08-05 21:12] LABS: PH,URINE DRUG SCREEN 6.5 (5.0-8.0)
[2024-08-05 21:20] LABS: ALCOHOL, URINE DRUG SCREEN NEGATIVE (NEGATIVE); AMPHET/METH SCREEN,URINE NEGATIVE (NEGATIVE); BARBITURATE SCREEN, URINE NEGATIVE (NEGATIVE); BENZODIAZEPINES SCREEN,URINE NEGATIVE (NEGATIVE); CANNABINOID SCREEN,URINE NEGATIVE (NEGATIVE); COCAINE SCREEN,URINE NEGATIVE (NEGATIVE); METHADONE SCREEN, URINE NEGATIVE (NEGATIVE); OPIATE SCREEN,URINE NEGATIVE (NEGATIVE); PHENCYCLIDINE SCREEN,URINE NEGATIVE (NEGATIVE)
[2024-08-05 21:26] LABS: ALCOHOL, BLOOD (SERUM) < 3 mg/dL (0-10)
[2024-08-05 21:27] LABS: SARS-COV2 (COVID) ANTIGEN,FIA Negative (Negative)
[2024-08-06] MEDS: QUEtiapine FUMARATE 100 MG TABLET PO ONE (04:11)
[2024-08-06] MEDS: LevETIRAcetam 250 MG TABLET PO ONE (04:11)
[2024-08-06] MEDS: ACETAMINOPHEN 325 MG TABLET PO ONE (04:12)
[2024-08-06 06:36] VITALS: BP 127/64; PULSE 69; RESP 17; O2SAT 96
== END 2024-08-06 09:23 | disposition home or self-care (01) ==
LOC: EMS 19:43
DX: R25.2 Cramp and spasm (principal); F31.9 Bipolar disorder, unspecified; G40.909 Epilepsy, unspecified, not intractable, without status epilepticus; E03.9 Hypothyroidism, unspecified; G47.30 Sleep apnea, unspecified; Z20.822 Contact with and (suspected) exposure to COVID-19
CPT/HCPCS: 99285; 87426; 80048; 85025; 36415; 80307; G0480